=== PATIENT | female | born 1975 | race Caucasian/White ===

== ENCOUNTER 2024-05-23 13:38 | Emergency (ER) | payer OTHER ==
[~2024-05-23] VITALS: Ht 167.6 cm; Wt 83.9 kg
[2024-05-23 13:38] VITALS: BP_SYST 117; PULSE 78; RESP 18; TEMP 97.7; O2SAT 96
[2024-05-23 14:48] LABS: BASOPHILS % (AUTO) 0.4 % (0.0-2.0); EOSINOPHILS % (AUTO) 0.4 % (0.0-4.0); LYMPHOCYTES # (AUTO) 1.4 K/uL (1.0-5.5); LYMPHOCYTES % (AUTO) 17.4 % (20.5-51.5); MEAN CORPUSCULAR HEMOGLOBIN 30 pg (27-31); MEAN CORPUSCULAR HGB CONC 33 % (32-36); MEAN CORPUSCULAR VOLUME 89 fL (79.0-98.0); MONOCYTES # (AUTO) 0.3 K/uL (0.0-1.0); MONOCYTES % (AUTO) 3.6 % (1.7-9.3); NEUTROPHILS # (AUTO) 6.2 K/uL (1.8-7.7); NEUTROPHILS % (AUTO) 78.2 % (40.0-70.0); PLATELET COUNT (AUTO) 278 K/uL (130-430); RED CELL DISTRIBUTION WIDTH 11.8 % (9.0-15.0); WHITE BLOOD COUNT (AUTO) 7.9 K/uL (4.8-10.8)
[2024-05-23] MEDS: MECLIZINE HCL 25 MG TABLET (ANITVERT) PO ONE (14:59)
[2024-05-23] MEDS: METOCLOPRAMIDE HCL 10 MG/2 ML VIAL IVP ONE (15:01)
[2024-05-23 15:04] LABS: PROTHROMBIN TIME 9.9 SECS (9.5-12.5)
[2024-05-23 15:09] LABS: ALANINE AMINOTRANSFERASE 20 U/L (12-78); ALBUMIN 3.5 g/dL (3.4-4.8); ANION GAP 8 (5-15); ASPARTATE AMINOTRANSFERASE 19 U/L (10-37); CALCIUM 9.1 mg/dL (8.4-11.0); CARBON DIOXIDE 28 mmol/L (23-29); CHLORIDE 101 mmol/L (98-107); CREATININE 0.84 mg/dL (0.55-1.30); GFR AFRICAN AMERICAN 93 mL/min (>90); GLUCOSE 102 mg/dL (74-106); SODIUM SERUM 137 mmol/L (136-145); TOTAL BILIRUBIN 0.4 mg/dL (0.0-1.0); TOTAL PROTEIN, SERUM 7.4 g/dL (6.4-8.3); UREA NITROGEN, BLOOD 10 mg/dL (8-21)
[2024-05-23 15:11] LABS: BILIRUBIN,DIRECT 0.1 mg/dL (0.0-0.3); CREATINE KINASE, TOTAL 98 U/L (26-192)
[2024-05-23 15:16] LABS: GFR NON AFRICAN-AMERICAN 77 mL/min (>90)
[2024-05-23] MEDS ORDERED: MECL-261 PO (15:50)
[2024-05-23 16:02] VITALS: BP_SYST 117; PULSE 78; RESP 18; TEMP 97.7; O2SAT 96
== END 2024-05-23 16:02 | disposition home or self-care (01) ==
LOC: SED 13:38
DX: R42 Dizziness and giddiness (principal); R53.1 Weakness
CPT/HCPCS: 99285; 96374; 70450; 71045; 80076; 80048; 82550; 85025; 85610; 85730; 84484; 36415; 93005; 81025; J2765; J8597